=== PATIENT | male | born 1990 | race African-American/Black ===

== ENCOUNTER 2020-04-04 16:45 | Inpatient (IN) | payer SELFPAY ==
[2020-04-04 18:05] VITALS: BMI 46.9
[2020-04-04] MEDS ORDERED: Dextrose 50% Abboject 50 ML SYRINGE SLOW IVP PRN (18:21)
[2020-04-04] MEDS ORDERED: hydrALAZINE 20 MG/ML VIAL SLOW IVP PRN ×2 (18:21→20:41)
[2020-04-04] MEDS ORDERED: Dextrose 5% in Water 1,000 ML IV PRN (18:21)
[2020-04-04] MEDS ORDERED: Morphine 4 MG/ML VIAL SLOW IVP PRN (18:21)
[2020-04-04] MEDS ORDERED: Ondansetron PF 4 MG/2 ML Vial IVP PRN (18:21)
[2020-04-04] MEDS ORDERED: Acetaminophen W/ Codeine 5 ML UDCUP PO PRN (18:23)
[2020-04-04 20:24] LABS: #Lymphocytes 2.8 thou/uL (1.20-3.40); #Monocytes 1.2 thou/uL (0.11-0.59); #Neutrophils 12.2 thou/uL (1.40-6.50); %Basophils 0.3 % (0.0-1.0); %Eosinophils 0.2 % (0.0-10.0); %Monocytes 7.2 % (0.0-10.0); %Neutrophils 75.4 % (42.0-75.0); Mean Corpuscular HGB CONC 33.3 g/dL (32.0-36.0); Mean Corpuscular Hemoglobin 28.6 pg (27.0-31.0); Mean Corpuscular Volume 85.9 fL (78.0-98.0); Mean Platelet Volume 6.7 fL (7.4-10.4); Platelet Count 308 thou/uL (130-400); RBC Distribution Width 13.7 % (11.5-14.5); White Blood Cell (WBC) Count 16.2 thou/uL (4.8-10.8)
[2020-04-04] MEDS ORDERED: Ibuprofen 100 MG/5 ML UDCUP PO PRN (20:41)
[2020-04-04] MEDS: Senokot S 8.6-50 MG TAB PO SCH (20:43)
[2020-04-04] MEDS: Famotidine/PF 20 mg/2ml Vial SLOW IVP SCH (20:44)
[2020-04-04 20:45] LABS: Anion Gap 16 mmol/L (10-20); BUN (Urea Nitrogen) 9 mg/dL (8.9-20.6); Calc. Creatinine Clearance 279 mL/min (70-130); Calcium 9.3 mg/dL (7.8-10.44); Carbon Dioxide 29 mmol/L (22-29); Chloride 100 mmol/L (98-107); Glucose 103 mg/dL (70-105); Magnesium 1.6 mg/dL (1.6-2.6); Phosphorus 3.6 mg/dL (2.3-4.7); Potassium 4.1 mmol/L (3.5-5.1); Sodium 141 mmol/L (136-145)
[2020-04-04] MEDS: CEFAZOLIN 2 GM in Premix Bag 1 BAG IVPB SCH (20:51)
[2020-04-04] MEDS: Sodium Chloride 0.9% 1,000 ML IV SCH (20:52)
[2020-04-04] MEDS ORDERED: Magnesium 2 GM/50 ML 2 GM in Premix Bag 1 BAG IVPB SCH (21:30)
[2020-04-05] MEDS: CEFAZOLIN 2 GM in Premix Bag 1 BAG IVPB SCH ×3 (05:30→22:06)
[2020-04-05] MEDS: Sodium Chloride 0.9% 1,000 ML IV SCH ×3 (06:26→20:51)
[2020-04-05] MEDS ORDERED: Sodium Phosphate 15 MMOL in Sodium Chloride 0.9% 250 ML 250 ML IVPB SCH (08:00)
[2020-04-05] MEDS ORDERED: Magnesium 2 GM/50 ML 2 GM in Premix Bag 1 BAG IVPB SCH (08:00)
[2020-04-05] MEDS: Famotidine/PF 20 mg/2ml Vial SLOW IVP SCH ×2 (08:13→20:51)
[2020-04-05] MEDS: Chlorhexidine Gluconate 15 ML UDCUP SSP SCH ×2 (08:13→20:51)
[2020-04-05] MEDS ORDERED: Midazolam HCl 2 mg/2 ml Vial ONE ×2 (09:12→11:14)
[2020-04-05] MEDS ORDERED: AFRIN NASAL MIST 15 ML BOT ONE (09:12)
[2020-04-05] MEDS ORDERED: Fentanyl 250 MCG/5 ML VIAL ONE (09:12)
[2020-04-05] MEDS ORDERED: Lidocaine 2% Jelly 5 ML TUBE ONE (09:12)
[2020-04-05] MEDS ORDERED: Hydrocortisone 1% Cream 30 GM TUBE ONE (09:22)
[2020-04-05] MEDS ORDERED: Chlorhexidine Gluconate 15 ML UDCUP SSP ONE (09:22)
[2020-04-05] MEDS: Senokot S 8.6-50 MG TAB PO SCH ×2 (09:55→20:50)
[2020-04-05] MEDS: Polyethylene Glycol 3350 17 GM Packet PO SCH (09:55)
[2020-04-05] MEDS ORDERED: Dexamethasone 4 mg/ml Vial ONE (10:15)
[2020-04-05] MEDS ORDERED: XYLOCAINE 2%-EPI 1:100,000 20 ML VIAL ONE ×2 (11:11→11:13)
[2020-04-05] MEDS ORDERED: Ketamine 50 MG/ML (10ML VIAL) ONE (11:15)
[2020-04-05] MEDS ORDERED: Rocuronium Bromide 50 MG/5 ML VIAL ONE (11:53)
[2020-04-05] MEDS ORDERED: SUGAMMADEX SODIUM 500 MG/5 ML VIAL ONE (12:09)
[2020-04-05] MEDS ORDERED: Phenylephrine 10 MG/ML VIAL ONE (13:15)
[2020-04-05] MEDS ORDERED: PHENYLEPHRINE-NS 100 MCG/ML 10 ML SYRINGE ONE ×5 (13:16→14:30)
[2020-04-05] MEDS ORDERED: EPINEPHrine 1 MG/ML AMP ONE ×2 (14:10→15:28)
[2020-04-05] MEDS ORDERED: Dexamethasone 20 MG/5 ML VIAL ONE ×2 (14:10)
[2020-04-05] MEDS ORDERED: PROPOFOL 200 MG/20 ML VIAL ONE (14:10)
[2020-04-05] MEDS ORDERED: Bupivacaine PF 0.5% 30 ML VIAL ONE (14:10)
[2020-04-05] MEDS ORDERED: Ondansetron PF 4 MG/2 ML Vial ONE ×2 (14:10)
[2020-04-05] MEDS ORDERED: Rocuronium Bromide 10 MG/ML (10ML VIAL) ONE (14:10)
[2020-04-05] MEDS ORDERED: diphenhydrAMINE 50 MG/ML VIAL ONE (14:10)
[2020-04-05] MEDS ORDERED: Ketorolac Tromethamine 30 MG/ML VIAL ONE (14:10)
[2020-04-05] MEDS ORDERED: Succinylcholine 200 MG/10 ml SYRINGE FS ONE (14:10)
[2020-04-05] MEDS ORDERED: Labetalol HCl 100 MG/20 ML VIAL ONE (15:02)
[2020-04-05] MEDS ORDERED: Morphine Sulfate 2 MG/ML SYRINGE SLOW IVP PRN (15:09)
[2020-04-05] MEDS ORDERED: HYDROmorphone 2 MG/ML VIAL SLOW IVP PRN (15:09)
[2020-04-05] MEDS ORDERED: Promethazine HCl 25 MG/ML VIAL IM PRN (15:09)
[2020-04-05] MEDS ORDERED: Ketorolac Tromethamine 30 MG/ML VIAL IVP PRN ×2 (15:09→16:56)
[2020-04-05] MEDS ORDERED: Ondansetron HCl/PF 4 MG/2 ML Vial IVP PRN (15:09)
[2020-04-05] MEDS ORDERED: Meperidine HCl/PF 25 MG/ML VIAL SLOW IVP PRN (15:09)
[2020-04-05] MEDS ORDERED: hydrALAZINE 20 MG/ML VIAL ONE (15:27)
[2020-04-05] MEDS: Dexamethasone 4 mg/ml Vial SLOW IVP SCH (17:33)
[2020-04-05 18:01] LABS: HBSAg Index 0.24 S/CO (0-0.99); HIV (1/2) Antibody/Antigen Non-Reactive (NonReactive); HIV 1/2 INDEX 0.25 S/CO (<1.00); Hep B Surf Ag Non-Reactive S/CO (NonReactive); Hep C IgG Ab Non-Reactive (NonReactive); Hep C Index 0.08 S/CO (0-0.79)
[2020-04-05] MEDS: Morphine 2 MG/ML VIAL SLOW IVP PRN (20:45)
[2020-04-06 00:56] VITALS: BP 143/82; TEMP 99.2
[2020-04-06] MEDS ORDERED: Morphine 2 MG/ML VIAL ONE (04:40)
[2020-04-06] MEDS ORDERED: Dexamethasone 4 mg/ml Vial ONE (04:42)
[2020-04-06] MEDS: Morphine 2 MG/ML VIAL SLOW IVP PRN (04:55)
[2020-04-06] MEDS: Dexamethasone 4 mg/ml Vial SLOW IVP SCH (05:00)
[2020-04-06] MEDS ORDERED: Chlorhexidine Gluconate 15 ML UDCUP SSP ONE (08:30)
[2020-04-06] MEDS ORDERED: Polyethylene Glycol 3350 17 GM Packet ONE (08:31)
[2020-04-06] MEDS ORDERED: Famotidine/PF 20 mg/2ml Vial ONE (08:36)
[2020-04-06] MEDS ORDERED: Metamucil PACK ONE (08:37)
[2020-04-06] MEDS ORDERED: Enoxaparin Sodium 30 MG/0.3 ML SYRINGE ONE (08:37)
[2020-04-06] MEDS ORDERED: Amlodipine 10 MG TAB ONE (08:38)
[2020-04-06] MEDS: Chlorhexidine Gluconate 15 ML UDCUP SSP SCH ×2 (08:49→09:04)
[2020-04-06] MEDS: Famotidine/PF 20 mg/2ml Vial SLOW IVP SCH ×2 (08:49→09:40)
[2020-04-06] MEDS ORDERED: traMADol HCl 50 MG TAB PO PRN (11:51)
[2020-04-06] MEDS ORDERED: Cyclobenzaprine 10 MG TAB PO PRN (11:51)
[2020-04-06] MEDS ORDERED: Ketorolac Tromethamine 30 MG/ML VIAL IVP PRN (11:57)
[2020-04-06] MEDS ORDERED: traMADol HCl 50 MG TAB PO SCH (12:00)
[2020-04-06] MEDS ORDERED: Acetaminophen 500 MG TAB PO SCH (12:00)
[2020-04-06 14:34] LABS: Anion Gap 15 mmol/L (10-20); BUN (Urea Nitrogen) 10 mg/dL (8.9-20.6); Calc. Creatinine Clearance 286 mL/min (70-130); Calcium 9.2 mg/dL (7.8-10.44); Carbon Dioxide 26 mmol/L (22-29); Chloride 102 mmol/L (98-107); Glucose 119 mg/dL (70-105); Magnesium 2.5 mg/dL (1.6-2.6); Potassium 4.1 mmol/L (3.5-5.1); Sodium 139 mmol/L (136-145)
[2020-04-06] MEDS: Sodium Chloride 0.9% 1,000 ML IV SCH (14:49)
[2020-04-06] MEDS: CEFAZOLIN 2 GM in Premix Bag 1 BAG IVPB SCH ×2 (14:50→14:53)
[2020-04-06] MEDS: Senokot S 8.6-50 MG TAB PO SCH (14:51)
[2020-04-06] MEDS: Polyethylene Glycol 3350 17 GM Packet PO SCH (14:51)
[2020-04-06] MEDS ORDERED: Gabapentin 300 MG CAP PO SCH (15:00)
[2020-04-06 17:41] LABS: Phosphorus 2.7 mg/dL (2.3-4.7)
[2020-04-06 19:36] LABS: Hemoglobin 14.9 g/dL (14.0-18.0); Mean Corpuscular HGB CONC 32.4 g/dL (32.0-36.0); Mean Corpuscular Hemoglobin 28.3 pg (27.0-31.0); Mean Corpuscular Volume 87.3 fL (78.0-98.0); Mean Platelet Volume 7.5 fL (7.4-10.4); Platelet Count 288 thou/uL (130-400); RBC Distribution Width 13.7 % (11.5-14.5); Red Blood Cell (RBC) Count 5.28 mill/uL (4.70-6.10); White Blood Cell (WBC) Count 19.8 thou/uL (4.8-10.8)
[2020-04-06 20:29] LABS: Band 23 % (5-11); Lymphocytes 8 % (21-51); MDiff Complete? YES; Monocytes 10 % (0-10); Neutrophil 56 % (42-75); Platelet Morphology Comment Appears Adequate; RBC Morphology Normal; Reactive Lymphocytes 3 % (0-10)
[2020-04-11] MEDS ORDERED: Ibuprofen 600 MG TAB PO SCH (14:00)
== END 2020-04-06 15:20 | disposition home or self-care (01) | DRG 141 ==
LOC: SURG A 17:34
PROVIDERS: ADMIT Surgery; ATTEND Surgery
PROC: 0NSV04Z Reposition Left Mandible with Internal Fixation Device, Open Approach (ICD-10-PCS; principal; 2020-04-05)
PROC: 0NST04Z Reposition Right Mandible with Internal Fixation Device, Open Approach (ICD-10-PCS; 2020-04-05)
PROC: 0CDXXZ0 Extraction of Lower Tooth, Single, External Approach (ICD-10-PCS; 2020-04-05)
PROC: 0CDWXZ0 Extraction of Upper Tooth, Single, External Approach (ICD-10-PCS; 2020-04-05)
DX: S02.602B Fracture of unspecified part of body of left mandible, initial encounter for open fracture (principal); S04.52XA Injury of facial nerve, left side, initial encounter; S04.51XA Injury of facial nerve, right side, initial encounter; S02.601B Fracture of unspecified part of body of right mandible, initial encounter for open fracture; F17.200 Nicotine dependence, unspecified, uncomplicated; Z80.0 Family history of malignant neoplasm of digestive organs; Z83.3 Family history of diabetes mellitus
CPT/HCPCS: 36415; 70486; 76377; 80048; 83735; 84100; 85025; 86803; 87340; 87389; C1713; J0171; J0360; J0690; J1100; J1200; J1885; J2250; J2270; J2370; J2405; J2704; J3010; J3475; J7050; S0020; S0028

== ENCOUNTER 2020-05-21 10:55 | Outpatient (CLI) | payer OTHER, SELFPAY | END 2020-05-21 10:56 | disposition home or self-care (01) | LOC: CT 10:55 | PROVIDERS: ATTEND Oral & Maxillofacial Surgery | DX: T84.218A Breakdown (mechanical) of internal fixation device of other bones, initial encounter (principal); S02.609K Fracture of mandible, unspecified, subsequent encounter for fracture with nonunion | CPT/HCPCS: 70486 ==

== ENCOUNTER 2020-05-28 11:35 | Observation (INO) | payer SELFPAY ==
[2020-05-28] MEDS ORDERED: Chlorhexidine Gluconate 15 ML UDCUP SSP SCH (12:30)
[2020-05-28] MEDS ORDERED: Dexamethasone 4 mg/ml Vial SLOW IVP SCH (12:30)
[2020-05-28] MEDS ORDERED: Dexmedetomidine 200 MCG/2 ML VIAL ONE (13:32)
[2020-05-28] MEDS ORDERED: Fentanyl 100 MCG/2 ML VIAL ONE ×4 (13:32→21:06)
[2020-05-28] MEDS ORDERED: AFRIN NASAL MIST 15 ML BOT ONE (13:32)
[2020-05-28] MEDS ORDERED: Chlorhexidine Gluconate 15 ML UDCUP SSP ONE (14:01)
[2020-05-28] MEDS ORDERED: Hydrocortisone 1% Cream 30 GM TUBE ONE (14:01)
[2020-05-28] MEDS ORDERED: Lidocaine 1% w/Epinephrine 1:100K 20 ML VIAL ONE (14:01)
[2020-05-28] MEDS ORDERED: Sodium Chloride 0.9% 0 ML ONE (14:02)
[2020-05-28] MEDS ORDERED: Midazolam HCl 2 mg/2 ml Vial ONE (14:07)
[2020-05-28] MEDS ORDERED: Lidocaine 1% PF 5 ML VIAL ONE (14:24)
[2020-05-28] MEDS ORDERED: PHENYLEPHRINE-NS 100 MCG/ML 10 ML SYRINGE ONE (14:24)
[2020-05-28] MEDS ORDERED: PROPOFOL 200 MG/20 ML VIAL ONE (14:24)
[2020-05-28] MEDS ORDERED: Dexamethasone 20 MG/5 ML VIAL ONE (14:24)
[2020-05-28] MEDS ORDERED: Ondansetron PF 4 MG/2 ML Vial ONE (14:24)
[2020-05-28] MEDS ORDERED: Albuterol Sulfate HFA (OR ONLY) ONE (14:40)
[2020-05-28] MEDS ORDERED: Sodium Chloride 0.9% 50 ML ONE (14:46)
[2020-05-28] MEDS ORDERED: Milrinone 10 MG/10 ML VIAL ONE (15:06)
[2020-05-28] MEDS ORDERED: PROPOFOL 20 ML ONE (15:06)
[2020-05-28] MEDS ORDERED: Rocuronium Bromide 50 MG/5 ML VIAL ONE (15:14)
[2020-05-28] MEDS ORDERED: SUGAMMADEX SODIUM 500 MG/5 ML VIAL ONE (16:45)
[2020-05-28] MEDS ORDERED: Bupivacaine PF 0.5% 30 ML VIAL ONE (17:00)
[2020-05-28] MEDS ORDERED: EPINEPHrine 1 MG/ML AMP ONE (17:00)
[2020-05-28] MEDS ORDERED: Sodium Chloride 0.9% 10 ML ONE (17:11)
[2020-05-28] MEDS ORDERED: Bacitracin Zinc Ointment 30 gm TUBE ONE (19:02)
[2020-05-28] MEDS ORDERED: Ketorolac Tromethamine 30 MG/ML VIAL IVP PRN (20:05)
[2020-05-28] MEDS ORDERED: Morphine 2 MG/ML VIAL SLOW IVP PRN (20:08)
[2020-05-28] MEDS: CEFAZOLIN 2 GM in Premix Bag 1 BAG IVPB SCH (22:47)
[2020-05-28] MEDS: Dexamethasone 4 mg/ml Vial SLOW IVP SCH (22:47)
[2020-05-28] MEDS ORDERED: Acetaminophen 650 MG/20.3 ML UDCUP PO PRN (23:32)
[2020-05-28] MEDS ORDERED: Labetalol HCl 100 MG/20 ML VIAL SLOW IVP PRN (23:33)
[2020-05-28] MEDS ORDERED: Albuterol 200 PUFF (6.7GM INHALER) INH PRN (23:34)
[2020-05-29] MEDS: hydrALAZINE 20 MG/ML VIAL SLOW IVP PRN ×3 (00:16→16:26)
[2020-05-29] MEDS: Hydrocodone-Acetamin 15 ML UDCUP PO PRN ×3 (00:17→16:25)
[2020-05-29 00:35] VITALS: BMI 42.3
[2020-05-29] MEDS: CEFAZOLIN 2 GM in Premix Bag 1 BAG IVPB SCH ×2 (06:05→13:12)
[2020-05-29] MEDS: Dexamethasone 4 mg/ml Vial SLOW IVP SCH ×2 (06:05→13:10)
[2020-05-29 08:09] VITALS: TEMP 98.5
[2020-05-29 16:26] VITALS: BP 175/107
== END 2020-05-29 19:23 | disposition home or self-care (01) ==
LOC: SDC 11:35 → SURG A 19:45
PROVIDERS: ADMIT Oral & Maxillofacial Surgery; ATTEND Oral & Maxillofacial Surgery
PROC: 0NSV04Z Reposition Left Mandible with Internal Fixation Device, Open Approach (ICD-10-PCS; principal; 2020-05-28)
PROC: 0CDXXZ1 Extraction of Lower Tooth, Multiple, External Approach (ICD-10-PCS; 2020-05-28)
DX: T84.218A Breakdown (mechanical) of internal fixation device of other bones, initial encounter (principal); S02.652K Fracture of angle of left mandible, subsequent encounter for fracture with nonunion; K04.7 Periapical abscess without sinus; M89.8X8 Other specified disorders of bone, other site; F17.210 Nicotine dependence, cigarettes, uncomplicated
CPT/HCPCS: 70486; 76377; 96365; 96366; 96375; 96376; C1713; G0378; J0171; J0360; J0690; J1100; J2250; J2260; J2405; J2704; J3010; J3490; S0020

== ENCOUNTER 2020-09-08 16:58 | Emergency (ER) | payer SELFPAY | END 2020-09-08 17:44 | disposition home or self-care (01) | LOC: ERS 16:58 | DX: R19.7 Diarrhea, unspecified (principal) | CPT/HCPCS: 99283 ==

== ENCOUNTER 2021-11-10 12:53 | Emergency (ER) | payer SELFPAY ==
[2021-11-10] MEDS ORDERED: Ketorolac Tromethamine 30 MG/ML VIAL ONE (13:35)
[2021-11-10] MEDS ORDERED: Acetaminophen 500 MG TAB ONE (14:53)
== END 2021-11-10 15:16 | disposition home or self-care (01) ==
LOC: ERS 12:53
DX: M54.42 Lumbago with sciatica, left side (principal); F17.210 Nicotine dependence, cigarettes, uncomplicated
CPT/HCPCS: 96372; 99283; J1885

== ENCOUNTER 2022-12-09 14:26 | Emergency (ER) | payer SELFPAY ==
[2022-12-09 15:49] LABS: #Eosinphils 0.2 thou/uL (0.0-0.7); #Monocytes 0.6 thou/uL (0.11-0.59); #Neutrophils 5.1 thou/uL (1.40-6.50); %Basophils 0.4 % (0.0-1.0); %Eosinophils 1.7 % (0.0-10.0); %Lymphocytes 33.3 % (21.0-51.0); %Neutrophils 57.2 % (42.0-75.0); Hematocrit 49.2 % (42.0-52.0); Mean Corpuscular HGB CONC 32.5 g/dL (32.0-36.0); Mean Corpuscular Hemoglobin 27.6 pg (27.0-31.0); Mean Corpuscular Volume 84.8 fl (78.0-98.0); Mean Platelet Volume 9.2 fL (7.4-10.4); Platelet Count 302 10x3/uL (130-400); RBC Distribution Width 15.2 % (11.5-14.5); White Blood Cell (WBC) Count 8.9 10x3/uL (4.8-10.8)
[2022-12-09 16:11] LABS: ALT (SGPT) 37 U/L (8-55); AST (SGOT) 28 U/L (5-34); Alkaline Phosphatase 52 U/L (40-110); Anion Gap 14 mmol/L (10-20); BUN (Urea Nitrogen) 8 mg/dL (8.9-20.6); Bilirubin, Total 0.5 mg/dL (0.2-1.2); Calc. Creatinine Clearance 0 mL/min (70-130); Calcium 9.7 mg/dL (7.8-10.44); Carbon Dioxide 30 mmol/L (22-29); Chloride 101 mmol/L (98-107); Estimated GFR 120; Globulin 2.5 g/dL (2.4-3.5); Glucose 109 mg/dL (70-105); Lipase 10 U/L (8-78); Potassium 4.3 mmol/L (3.5-5.1); Protein, Total 7.5 g/dL (6.0-8.3); Sodium 141 mmol/L (136-145)
[2022-12-09 16:15] LABS: Troponin I 0.013 ng/mL (< 0.028)
== END 2022-12-09 17:22 | disposition home or self-care (01) ==
LOC: ERS 14:26
DX: R07.89 Other chest pain (principal); F17.210 Nicotine dependence, cigarettes, uncomplicated
CPT/HCPCS: 36415; 71045; 80053; 83690; 84484; 85025; 93005